=== PATIENT | female | born 1960 | race Caucasian/White ===

== ENCOUNTER 2018-04-30 09:46 | Emergency (ER) | payer OTHER ==
[~2018-04-30] VITALS: Ht 162.6 cm; Wt 65.0 kg
[2018-04-30] MEDS ORDERED: ALBUTEROL/IPRATROPIUM 2.5MG/0.5MG, 3 ML ONE (09:57)
[2018-04-30] MEDS ORDERED: ALBUTEROL/IPRATROPIUM 2.5MG/0.5MG, 3 ML NEB ONE (10:00)
[2018-04-30 11:34] VITALS: BP 159/69
== END 2018-04-30 12:12 | disposition home or self-care (01) ==
LOC: ED 12:00
DX: J45.31 Mild persistent asthma with (acute) exacerbation (principal); J20.8 Acute bronchitis due to other specified organisms
CPT/HCPCS: 71045; 93005; 94640; 99284; J7512